=== PATIENT | female | born 1955 | race Caucasian/White ===

== ENCOUNTER 2017-06-21 12:15 | Emergency (ER) | payer OTHER ==
[2017-06-21] MEDS: SOD CHLORIDE 0.9% 1,000 ML IV (13:26)
[2017-06-21] MEDS: HYDROCODONE/APAP (5/325) TAB PO (13:26)
[2017-06-21 13:40] LABS: ADD UMIC YES; UR ASCORBIC ACID NEGATIVE (NEGATIVE); UR BILIRUBIN (Dip) NEGATIVE (NEGATIVE); UR BLOOD (Dip) 1+ mg/dL (NEGATIVE); UR CLARITY CLEAR (CLEAR); UR COLOR YELLOW (YELLOW); UR GLUCOSE (Dip) NEGATIVE (NEGATIVE); UR KETONES (Dip) NEGATIVE (NEGATIVE); UR LEUKOCYTE ESTERASE (Dip) NEGATIVE Leu/ul (NEGATIVE); UR NITRITE (Dip) NEGATIVE (NEGATIVE); UR RBC 1 /HPF (0-5); UR SPECIFIC GRAVITY (Dip) 1.009 (1.003-1.030); UR SQUAMOUS EPITHELIAL CELL FEW /HPF (FEW); UR TOTAL PROTEIN (Dip) NEGATIVE (NEGATIVE); UR UROBILINOGEN (Dip) NEGATIVE (NEGATIVE); UR WBC 1 /HPF (0-5)
[2017-06-21] MEDS: ONDANSETRON 4 MG INJ IV (14:51)
[2017-06-21] MEDS: morphine 4 MG/ML VIAL IV (14:52)
== END 2017-06-21 16:04 | disposition home or self-care (01) ==
LOC: FTE 12:15
DX: M54.2 Cervicalgia (principal); E11.9 Type 2 diabetes mellitus without complications
CPT/HCPCS: 70450; 72125; 81001; 96374; 96375; 99285-25